=== PATIENT | male | born 1980 | race African-American/Black ===

== ENCOUNTER → 2020-07-18 14:37 | Outpatient (BNVA) | payer OTHER, SELFPAY | PROVIDERS: PCP Family Medicine; Referring Provider Family Medicine; Visit Provider Surgery | DX: K62.82 Dysplasia of anus (principal) | CPT/HCPCS: 46600; 99212 ==

== ENCOUNTER → 2021-01-30 15:32 | Outpatient (BNVA) | payer OTHER, SELFPAY | PROVIDERS: PCP Family Medicine; Visit Provider Surgery | DX: K62.82 Dysplasia of anus (principal) | CPT/HCPCS: 46600; 99212 ==

== ENCOUNTER → 2021-08-14 10:42 | Outpatient (BNVA) | payer OTHER, SELFPAY | PROVIDERS: PCP Family Medicine; Referring Provider Internal Medicine; Visit Provider Surgery | DX: K62.82 Dysplasia of anus (principal) | CPT/HCPCS: 46600; 99212 ==

== ENCOUNTER → 2022-08-14 10:41 | Outpatient (BNVA) | payer OTHER, SELFPAY | PROVIDERS: PCP Internal Medicine; Visit Provider Surgery | DX: K64.9 Unspecified hemorrhoids (principal); Z87.19 Personal history of other diseases of the digestive system | CPT/HCPCS: 46600; 99212 ==

== ENCOUNTER 2023-04-21 09:53 | Outpatient (REF) | payer OTHER, SELFPAY ==
[2023-04-21 12:09] LABS: Estimated Glomerular Filt Rate > 60
[2023-04-21 12:10] LABS: ~HepC Num1 0.05 S/CO (0.00-0.79); ~Hepatitis C Antibody Nonreactive (Nonreactive)
[2023-04-21 12:11] LABS: Syphilis Screen Nonreactive (Nonreactive)
[2023-04-23 15:43] LABS: HIV RNA PCR Qn Copies NOT DETECTED copies/mL (NOT DETECTED); HIV RNA PCR Qn Log Copies NOT DETECTED (NOT DETECTED)
== END 2023-04-21 09:54 | disposition home or self-care (01) ==
LOC: HO.HHCL 09:53
PROVIDERS: Visit Provider Internal Medicine
DX: Z11.3 Encounter for screening for infections with a predominantly sexual mode of transmission (principal)
CPT/HCPCS: 36415; 82565; 86780; 86803; 87536

== ENCOUNTER 2023-06-01 10:03 | Outpatient (REF) | payer OTHER, SELFPAY ==
[2023-06-01 14:11] LABS: MANUAL DIFF FLAG NO
[2023-06-01 14:16] LABS: Basophils Percent Auto 0.5 % (0-2); Eosinophils Absolute Auto 0.2 X10*3/uL (0.0-0.4); Eosinophils Percent Auto 3.5 % (0-4); Hematocrit 48.4 % (42.0-52.0); Hemoglobin 15.8 g/dl (14.0-18.0); Imm Gran Abs Auto 0.01 X10*3/uL (0.00-0.03); Imm Gran Pct Auto 0.2 % (0.0-0.4); Lymphocytes Absolute Auto 2.6 X10*3/uL (1.2-4.9); Lymphocytes Percent Auto 38.3 % (20-40); Mean Corpuscular HGB Conc 32.6 g/dl (31.0-36.0); Mean Corpuscular Hemoglobin 27.4 pg (27.0-33.0); Mean Corpuscular Volume 83.9 fL (80.0-98.0); Mean Platelet Volume 11.2 fL (9.4-12.4); Monocytes Absolute Auto 0.5 X10*3/uL (0.1-1.2); Monocytes Percent Auto 6.8 % (2-11); Neutrophils Absolute Auto 3.4 x10*3/uL (2.0-8.3); Neutrophils Percent Auto 50.7 % (45-73); Platelet Count 290 X10*3/uL (160-400); Red Blood Count 5.77 X10*6/uL (4.60-5.80); Red Cell Distribution Width 12.9 % (11.0-16.0); White Blood Count 6.7 X10*3/uL (4.8-10.8)
[2023-06-01 14:46] LABS: Anion Gap 16 (12-20); Blood Urea Nitrogen 20 mg/dL (9-16); Calcium 9.9 mg/dL (8.4-10.2); Carbon Dioxide 23 mmol/L (22-29); Chloride 101 mmol/L (96-108); Cholesterol 167 mg/dL (<200); Estimated Glomerular Filt Rate > 60; HDL Cholesterol 24 mg/dL (>40); LDL Cholesterol Calculated 96 mg/dL (<100); Potassium 4.6 mmol/L (3.3-5.1); Sodium 135 mmol/L (135-145); Triglycerides 237 mg/dL (<150)
[2023-06-01 14:51] LABS: Glucose Fasting 398 mg/dL (60-99)
[2023-06-01 14:51] LABS: Creatinine Urine 56.77 mg/dL; Microalbum/Creatinine Ratio Ur 364.6 ug/mg cr (<30)
== END 2023-06-01 10:04 | disposition home or self-care (01) ==
LOC: HO.CHCLDS 10:03
PROVIDERS: Visit Provider Internal Medicine
DX: E11.65 Type 2 diabetes mellitus with hyperglycemia (principal); Z79.4 Long term (current) use of insulin
CPT/HCPCS: 36415; 80048; 80061; 82043; 82570; 84443; 85025

== ENCOUNTER 2023-08-13 10:12 | Outpatient (AMB) | payer OTHER, SELFPAY ==
--- NOTE | 2023-08-13 10:17 | MHC.OFFVIS ---
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 Patient c/o; reports no rectal bleeding or pain. 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 Currently denies any significant complaints with regards to his anus. He does admit to being constipated and would have pain and discomfort once in a while with hard stools. He denies any bleeding. [facility] Medical History AIN grade II Surgical History History of excision of mass Family History Mother Breast CA Father Diabetes Social History Alcohol intake: current Alcohol intake frequency: holidays/special occasions only Review of Systems Const Denies chills and Denies fever(s) Card Denies chest pain, Denies dyspnea and Denies dyspnea on exertion Resp Denies cough, Denies dyspnea and Denies dyspnea on exertion GI Denies hematochezia, Denies change in bowel habits and Reports constipation Denies hematuria and Denies difficulty urinating Musc Denies back pain and Denies limited range of motion Neuro Denies focal weakness and Denies convulsions Psych Denies depression and Denies mood swings Physical Exam Vital Signs: Last Vital Signs Pulse 68 08/13/23 10:24 BP 124/55 L 08/13/23 10:24 BMI result Body Mass Index 31.0 Const General: comfortable and no acute distress Orientation/consciousness: patient oriented x3 Neck Neck: Yes no lymphadenopathy Resp Auscultation: clear to auscultation bilaterally Cardio Rhythm: regular rhythm GI Other: Rectal exam shows moderate size external hemorrhoids mostly on the left, no perianal lesions Palpation (GI): Soft to palpation, nontender and no guarding Neuro General: patient oriented x3 Office Procedures Anoscopy He was in aron-knife position. The anoscope was gently inserted. A full examination of the anal canal was done. Had internal and external hemorrhoids on both the left and right side. There were no lesions seen. There is no condyloma. There was no ulcer or fissure. There was no induration on digital exam. There was no bleeding. [id number] Assessment & Plan Assessment & Plan (1) AIN grade II: Code(s): K62.82 - Dysplasia of anus Plan: Current exam and anoscopy reveals hemorrhoids, internal external but without any ulcers, abnormal mucosa in the anus or induration. I have therefore him to come back in about 1 year to repeat the anoscopy for surveillance. He also admits to chronic constipation. I have prescribed him Metamucil I also told him that if he have concerns, he can come back to the office earlier. Medications: New psyllium seed (sugar) (Metamucil (sugar) oral powder) 1 tbsp PO BID 1,254 grams 0RF Coding Level of Care Code Est Pt Level 3 (66172) Diagnoses AIN grade II K62.82 CPT Codes Details - CPT: 10376-[id number] ([id number])
[2023-08-13 10:24] VITALS: BP 124/55; PULSE 68; BMI 31.0
== END 2023-08-13 10:38 | disposition home or self-care (01) ==
PROVIDERS: PCP Internal Medicine; Visit Provider Surgery
DX: K62.82 Dysplasia of anus (principal)
CPT/HCPCS: 46600; 99213

== ENCOUNTER → 2023-08-13 10:12 | Outpatient (BNVA) | payer OTHER, SELFPAY | PROVIDERS: PCP Internal Medicine; Visit Provider Surgery | DX: K62.82 Dysplasia of anus (principal) | CPT/HCPCS: 46600; 99212 ==

== ENCOUNTER 2024-05-10 11:32 | Outpatient (REF) | payer OTHER, SELFPAY ==
[2024-05-10 14:10] LABS: Cholesterol 179 mg/dL (<200); Estimated Glomerular Filt Rate > 60; HDL Cholesterol 37 mg/dL (>40); LDL Cholesterol Calculated 130 mg/dL (<100); Triglycerides 63 mg/dL (<150)
[2024-05-11 04:38] LABS: Syphilis Screen Nonreactive (Nonreactive)
[2024-05-11 04:44] LABS: ~HepC Num1 0.08 S/CO (0.00-0.79); ~Hepatitis C Antibody Nonreactive (Nonreactive)
[2024-05-11 12:49] LABS: HIV RNA PCR Qn Copies NOT DETECTED copies/mL (NOT DETECTED); HIV RNA PCR Qn Log Copies NOT DETECTED (NOT DETECTED)
== END 2024-05-10 11:33 | disposition home or self-care (01) ==
LOC: HO.HHCL 11:32
PROVIDERS: Nurse Practitioner Primary Care; Visit Provider Internal Medicine
DX: E11.65 Type 2 diabetes mellitus with hyperglycemia (principal); Z79.4 Long term (current) use of insulin; Z11.3 Encounter for screening for infections with a predominantly sexual mode of transmission
CPT/HCPCS: 36415; 80061; 82565; 86780; 86803; 87536

== ENCOUNTER 2024-11-29 11:16 | Outpatient (REF) | payer OTHER, SELFPAY ==
[2024-11-29 14:23] LABS: Syphilis Screen Nonreactive (Nonreactive)
[2024-11-29 14:25] LABS: ~HepC Num1 0.08 S/CO (0.00-0.79); ~Hepatitis C Antibody Nonreactive (Nonreactive)
[2024-11-30 17:59] LABS: HIV RNA PCR Qn Copies NOT DETECTED copies/mL (NOT DETECTED); HIV RNA PCR Qn Log Copies NOT DETECTED (NOT DETECTED)
== END 2024-11-29 11:17 | disposition home or self-care (01) ==
LOC: HO.HHCL 11:16
PROVIDERS: Visit Provider Internal Medicine
DX: Z79.899 Other long term (current) drug therapy (principal)
CPT/HCPCS: 36415; 82550; 86780; 86803; 87536

== ENCOUNTER 2024-11-29 16:02 | Outpatient (REF) | payer OTHER, SELFPAY ==
[2024-11-29 18:48] LABS: Creatinine Urine 73.28 mg/dL; Microalbum/Creatinine Ratio Ur 27.2 ug/mg cr (<30)
== END 2024-11-29 16:03 | disposition home or self-care (01) ==
LOC: HO.CHCLDS 16:02
PROVIDERS: Visit Provider Internal Medicine
DX: E11.65 Type 2 diabetes mellitus with hyperglycemia (principal); Z79.4 Long term (current) use of insulin
CPT/HCPCS: 82043; 82570

== ENCOUNTER 2025-03-06 11:43 | Outpatient (REF) | payer OTHER, SELFPAY ==
--- OUTSIDE RECORDS SUMMARY | 2025-03-06 12:36 | XMS_ITS | Clinical Summary ---
Author Organization [employer] Address [address] [place] [address] Care Team Providers Care Salt Machine Operator Name Role Phone Julianne Harper MD Primary Care Provider [phone] Allergies No known active allergies Medications BD Insulin Syringe U/F 31G X 5/16 0.5 ML miscIndications :Type 2 diabetes mellitus with hyperglycemia, with long-term current use of insulin ([facility]),Type 2 diabetes mellitus without complication, without long-term current use of insulin ([facility]) USE ONCE DAILY 30 each 06/01/20 23 Active Alcohol Swabs (Alcohol Pads) 70 % padsIndications :Type 2 diabetes mellitus with hyperglycemia, with long-term current use of insulin ([facility]) TO use 4 times a day 100 each 06/29/20 23 Active tadalafil (Cialis) 20 MG tablet TAKE 1 TABLET 1 HOUR BEFORE SEXUAL RELATIONS ONCE DAILY NEEDED. 30 tablet 01/21/20 24 Active insulin syringe-needle U-100 (BD Insulin Syringe U/F) 31G X 5/16 0.5 mL miscIndications :Type 2 diabetes mellitus with hyperglycemia, with long-term current use of insulin ([facility]),Type 2 diabetes mellitus without complication, without long-term current use of insulin ([facility]) USE ONE DAILY 30 each 07/05/20 24 Active insulin glargine (Lantus) 100 UNIT/ML injectionIndica tions:Type 2 diabetes mellitus with hyperglycemia, with long-term current use of insulin ([facility]) Inject 35 Units under the skin at bedtime. 10 mL 07/26/20 24 Active simvastatin (Zocor) 40 MG tabletIndicatio ns:Hypertriglyc eridemia Take 1 tablet (40 mg) by mouth at bedtime. 90 tablet 3 11/30/19 25 026 Active Diclofenac Sodium 1 % gelIndications: Chronic midline low back pain without sciatica To apply to the affected area 3 times a day 100 g 11/30/19 25 Active emtricitabine-t enofovir DF (Truvada) 200-300 MG tabletIndicatio ns:On pre-exposure prophylaxis for HIV One tablet by mouth daily 90 tablet 12/06/19 25 Active lisinopril 5 MG tabletIndicatio ns:Primary hypertension Take 1 tablet (5 mg) by mouth in the morning. 90 tablet 3 03/06/20 25 Active Cialis 20 MG tabletIndicatio ns:Other male erectile dysfunction Take 1 tablet (20 mg) by mouth if needed each day for erectile dysfunction. 10 tablet 3 03/06/20 25 Active empagliflozin (Jardiance) 25 MGIndications:T ype 2 diabetes mellitus with hyperglycemia, with long-term current use of insulin ([facility]),Type 2 diabetes mellitus with hyperglycemia, without long-term current use of insulin ([facility]) TAKE ONE TABLET BY MOUTH EVERY DAY IN THE MORNING FOR DIABETES 30 tablet 3 03/06/20 25 Active metFORMIN (Glucophage) 1000 MG tabletIndicatio ns:Type 2 diabetes mellitus with hyperglycemia, with long-term current use of insulin ([facility]) Take 1 tablet (1,000 mg) by mouth with breakfast and with evening meal. 180 tablet 5 03/06/20 25 Active Cialis 20 MG tablet TAKE 1 TABLET 1 HOUR BEFORE SEXUAL RELATIONS ONCE DAILY NEEDED. 07/08/20 22 025 Discontinued(Re order (will not trigger notification to Pharmacy)) empagliflozin (Jardiance) 25 MGIndications:T ype 2 diabetes mellitus with hyperglycemia, with long-term current use of insulin ([facility]),Type 2 diabetes mellitus with hyperglycemia, without long-term current use of insulin ([facility]) TAKE ONE TABLET BY MOUTH EVERY DAY IN THE MORNING FOR DIABETES 30 tablet 3 09/20/19 25 025 Discontinued metFORMIN (Glucophage) 1000 MG tablet Take 1 tablet (1,000 mg) by mouth with breakfast and with evening meal. 180 tablet 5 11/30/19 25 025 Discontinued(Re order (will not trigger notification to Pharmacy)) lisinopril 5 MG tabletIndicatio ns:Primary hypertension Take 1 tablet (5 mg) by mouth in the morning. 90 tablet 3 11/30/19 25 025 Discontinued(Re order (will not trigger notification to Pharmacy)) empagliflozin (Jardiance) 25 MGIndications:T ype 2 diabetes mellitus with hyperglycemia, with long-term current use of insulin ([facility]),Type 2 diabetes mellitus with hyperglycemia, without long-term current use of insulin ([facility]) TAKE ONE TABLET BY MOUTH EVERY DAY IN THE MORNING FOR DIABETES 30 tablet 3 02/14/20 25 025 Discontinued(Re order (will not trigger notification to Pharmacy)) Active Problems Problem Noted Date Diagnosed Date Hypertensive disorder 12/11/2020 Onychomycosis 04/23/2018 ED (erectile dysfunction) 04/23/2018 Type 2 diabetes mellitus 07/10/2015 Encounters Date Type Department Care Team Description 03/06/2025 11:00 AM EDT Office Visit [facility] [address] [place] [address] Julianne Harper MD Primary hypertension (Primary Dx); Type 2 diabetes mellitus with hyperglycemia, with long-term current use of insulin ([facility]); Primary hypertension; Other male erectile dysfunction; Type 2 diabetes mellitus with hyperglycemia, with long-term current use of insulin ([facility]); Type 2 diabetes mellitus with hyperglycemia, without long-term current use of insulin ([facility]); Encounter for immunization; Dietary counseling; Exercise counseling; Class 1 obesity due to excess calories with serious comorbidity and body mass index (BMI) of 33.0 to 33.9 in adult 03/06/2025 Travel 02/17/2025 Refill [facility] [address] [place] [address] Julianne Harper MD 02/11/2025 Refill [facility] [address] [place] [address] Julianne Harper MD Type 2 diabetes mellitus with hyperglycemia, with long-term current use of insulin ([facility]); Type 2 diabetes mellitus with hyperglycemia, without long-term current use of insulin ([facility]) 12/05/2024 Orders Only [facility] [address] [facility] [place] [address] Julianne Harper MD On pre-exposure prophylaxis for HIV from Last 3 Months Immunizations Immunization Administration Dates Next Due Hep B, adult 03/06/2025 Influenza injectable quadriv alent IIV4 with preservative 09/12/2019,11/09/2017,06/09/2016,07/10 Influenza injectable quadriv alent preservative free 06/01/2023,06/06/2021,2018 Influenza, seasonal, injecta ble, preservative free 07/27/2024 MMR 2018,03/26/2016 Pfizer Covid-19 Vaccine 12+ 07/27/2024 Pneumococcal Conjugate PCV 20 01/21/2024 Pneumococcal Polysaccharide PPSV23 08/01/2015 Tdap 08/01/2015 Family History Medical History Relation Name Comments Diabetes Father Relation Name Status Comments Father Social History Tobacco Use Types Packs/Day Years Used Date Smoking Tobacco: Never Smokeless Tobacco: Never Tobacco Cessation:Counseling Given: No Alcohol Answer Date Recorded How often do you have a drink containing alcohol ? 1 03/06/2025 How many drinks containing a lcohol do you have on a typical day when you are drinking? 0 03/06/2025 How often do you have six or more drinks on one occasion? 0 03/06/2025 Depression Answer Date Recorded Patient Health Questionnaire-9 Score 6 03/06/2025 Patient Health Questionnaire-9 Score 6 03/06/2025 Last PHQ-9: Questionnaire Data Not on file 0 03/06/2025 Housing Stability Answer Date Recorded What is your housing situation today? I have sukumar sing 11/22/[address] you li ve. Do you have problems with any of the following? None of the above 11/22/2024 Food Insecurity Answer Date Recorded Within the past 12 months, y ou worried that your food would run out before you got money to buy more: Never True 2024 Within the past 12 months,th e food you bought just didn't last and you didn't have enough money to get more: Sometimes True 03/06/2025 Transportation Answer Date Recorded In the past 12 months, has l ack of transportation kept you from medical appts, meetings, work or from getting things needed for daily living? I am not sure 03/06/2025 Utilities Answer Date Recorded In the past 12 months, has t he electric, gas, oil or water company threatened to shut off services in your home? No 11/22/2024 Depression Answer Date Recorded Patient Health Questionnaire-2 Score 2 03/06/2025 Internet Access Answer Date Recorded Internet Access Q1 Yes 11/22/2024 Internet Access Q2 Not on file 11/22/2024 Sex and Gender Information Value Date Recorded Sex Assigned at Male 07/07/2022 10:28 AM EDT Legal Sex Male 10:28 AM EDT Gender Identity Choose not to disclose 10:28 AM EDT Sexual Orientation Choose not to disclose 2021 10:28 AM EDT Last Filed Vital Signs Vital Sign Reading Time Taken Comments Blood Pressure 136/83 03/06/2025 11:24 AM EDT Pulse 92 03/06/2025 11:24 AM EDT Temperature 36.8 C (98.2 F) 03/06/2025 11:03 AM EDT Respiratory Rate 20 03/06/2025 11:03 AM EDT Oxygen Saturation 98% 03/06/2025 11:03 AM EDT Inhaled Oxygen Concentration - - Weight 98 kg (216 lb) 03/06/2025 11:03 AM EDT Height 172.1 cm (5' 7.75 ) 03/06/2025 11:03 AM E DT Body Mass Index 33.09 03/06/2025 11:03 AM EDT Plan of Treatment Health Maintenance Due Date Last Done Comments CT Colonography 1979 Colonoscopy 1979 Colorectal Cancer Screening 1979 FIT DNA/Cologuard 1979 FIT 1979 FOBT 1979 Sigmoidoscopy 1979 Disability Screening 1979 Eye Exam 1989 Family Planning (PISQ) 1994 Hepatitis B Vaccines (2 of 3 - 19+ 3-dose series) 04/03/2025 03/06/2025 Lipid Panel 05/10/2025 05/10/2024, 05/09, 04/30/2021 Diabetes: Hemoglobin A1C 06/06/2025 025, 11/29/2024, 07/26/2024, Additional history exists Diabetes: Foot Exam 07/26/2025 07/26/2024 DTaP/Tdap/Td Vaccines (2 - Td or Tdap) 08/01/2025 08/01/2015 SDOH Screening 11/22/2025 11/22/2024 Diabetes: Urine Protein Screening 11/29/2025 11/29/2024, 06/01/2023, 04/30/2021, Additional history exists Alcohol/Substance Use Screening 03/06/2026 03/06/2025 Depression Screening 03/06/2026 03/06/2025, 03/06/20 Tobacco Screening 03/06/2026 03/06/2025 Zoster Vaccines (1 of 2) 2029 RSV Patients and Patients Aged 60 years or older (1 - 1-dose 75+ series) 2054 Pneumococcal Vaccine: Pediatrics (0 to 5 Years) and At-Risk Patients (6 to 49) Years Completed 01/21/2024, 08/01/2015 COVID-19 Vaccine Completed 07/27/2024, 06/2021, 03/26/2021 Influenza Vaccine Completed 07/27/2024, , 06/06/2021, Additional history exists HIV Screening Completed 11/29/2024, 0911/2023, 04/21/2023, Additional history exists Hepatitis C Screening Completed 11/29/2024 , 05/10/2024, 04/21/2023, Additional history exists HIB Vaccines Aged Out No longer eligi ble based on patient's age to complete this topic HPV Vaccines Aged Out No longer eligi ble based on patient's age to complete this topic Hepatitis A Vaccines Aged Out No long er eligible based on patient's age to complete this topic IPV Vaccines Aged Out No longer eligi ble based on patient's age to complete this topic Meningococcal B Vaccine Aged Out No l onger eligible based on patient's age to complete this topic Meningococcal Vaccine Aged Out No ty butch eligible based on patient's age to complete this topic RSV under 20 months Aged Out No longe r eligible based on patient's age to complete this topic Rotavirus Vaccines Aged Out No longer eligible based on patient's age to complete this topic Procedures Procedure Name Priority Date/Time Associated Diagnosis Comments POCT GLUCOSE Routine 03/06/2025 11:29 AM EDT Type 2 diabetes mellitus with hyperglycemia, with long-term current use of insulin ([facility]) POCT GLYCATED HEMOGLOBIN, TOTAL Routine 03/06/2025 11:28 AM EDT Type 2 diabetes mellitus with hyperglycemia, with long-term current use of insulin ([facility]) ALBUMIN, RANDOM URINE W/CREATININE Routine 11/29/2024 4:10 PM EDT Type 2 diabetes mellitus with hyperglycemia, with long-term current use of insulin ([facility]) HEPATITIS C AB W/REFL TO HCV RNA, QN, PCR Routine 11/29/2024 11:20 AM EDT On pre-exposure prophylaxis for HIV HIV 1 RNA, QUANTITATIVE REAL TIME PCR Routine 11/29/2024 11:20 AM EDT On pre-exposure prophylaxis for HIV LIPID PANEL, STANDARD Routine 05/10/2024 11:38 AM EDT Type 2 diabetes mellitus with hyperglycemia, with long-term current use of insulin ([facility]) from Last 3 Months or Most Recently Relevant to Health Maintenance Results * (ABNORMAL) POCT Glucose (03/06/2025 11:29 AM EDT) Pathologist [facility] Glucose Blood, POC 246(A) 60 - 200 mg/dL QC Media Lot # [id number] Lot# Expiration Date Comment:random Blood Capillary blood specimen / Unknown 03/06/2025 11:29 AM EDT Julianne Harper MD POINT OF CARE TEST ENTER/ED IT ORDERABLES Final Result * (ABNORMAL) POCT HGB A1C (03/06/2025 11:28 AM EDT) Hemoglobin A1C 9.7(A) 4.0 - 5.7 % QC Media Lot # [id number] Lot# Expiration Date [id number] Blood 03/06/2025 11:2 8 AM EDT Julianne Harper MD POINT OF CARE TEST ENTER/ED IT ORDERABLES Final Result * Albumin, Random Urine W/Creatinine (11/29/2024 4:10 PM EDT) Creatinine, Urine 73.28 mg/dL [facility] Microalbumin Urine 20.0 mg/L [facility] Microalbum Creatinine Ratio Ur 27.2 <30 ug/mg cr [facility] Comment:Albumin/Creatinine R atio Reference Ranges: Normal: < 30 ug/mg creatinine Microalbuminuria: 30 - 300 ug/mg creatinineClinical Albuminuria: > 300 ug/mg creatinine Urine (Urine, Random) 11/29/2024 4:10 PM EDT 11/29/2024 5:55 PM EDT us Julianne Harper MD LAB URINE ORDERABLES Final Result Performing Organization Address City/[facility]/ZIP Co de Phone Number [facility] [address] [place] [phone] * Hepatitis C Antibody with Reflex to HCV, RNA, Quantitative, Real-Time PCR (11/29/2024 11:20 AM EDT) Hepatitis C Antibody Nonreactive Nonreactive [facility] Comment:Antibodies to HCV no t detected; does not exclude early acuteHCV infection. 11/29/2024 11:2 0 AM EDT 11/29/2024 1:38 PM EDT us Julianne Harper MD LAB BLOOD ORDERABLES Final Result Performing Organization Address City/[facility]/ZIP Co de Phone Number [facility] [address] [place] [phone] * HIV-1 RNA, Quantitative, Real-Time PCR (11/29/2024 11:20 AM EDT) HIV RNA PCR Qn Copies NOT DETECTED NOT DETECTED copies/mL [facility] HIV RNA PCR Qn Log Copies NOT DETECTED NOT DETECTED [facility] Comment:Result Units: Log co pies/mLThis test was performed using Real-Time Polymerase ChainReaction.Reportable Range: 20 copies/mL to 10,000,000 copies/mL(1.30 log copies/mL to 7.00 log copies/mL).THIS TEST WAS PERFORMED AT:[email or web address] [place] [id number] HAYWARD MD 11/29/2024 11:2 0 AM EDT 11/29/2024 1:38 PM EDT Julianne Harper MD LAB BLOOD ORDERABLES Final Result [facility] [address] [place] [phone] [phone] * (ABNORMAL) Lipid Panel, Standard (05/10/2024 11:38 AM EDT) Triglycerides 63 <150 mg/dL [facility] Comment:Desirable Triglyceri de: less than 150 mg/dLBorderline High Triglyceride 150-199 mg/dLHigh Triglyceride: 200-499 mg/dLVery High Triglyceride: greater than or equal to 5OO mg/dL Cholesterol 179 <200 mg/dL [facility] Comment:Desirable Cholestero l: less than 200 mg/dLBorderline High Cholesterol: 200-239 mg/dLHigh Cholesterol: greater than 239 mg/dL LDL Cholesterol Calculated 130(H) <100 mg/dL [facility] Comment:Desirable LDL: less than 100 mg/dLNear Optimal/Above Optimal LDL: 110- 129 mg/dLBorderline High LDL: 130-159 mg/dLHigh LDL: 160-189 mg/dLVery High LDL: greater than or equal to 190 mg/dL HDL Cholesterol 37(L) >40 mg/dL [facility] Comment:Desirable HDL: great er than 40 mg/dL Note: This HDL assay may give artificially low results in patients with liver disease. Blood Venous blood specimen / Unknown 05/10/2024 11:38 AM EDT 05/10/2024 1:23 PM EDT Rosalba Humphrey [facility] LAB BLOOD ORDERABLES Final Resul t [facility] [address] [place] [address] [phone] from Last 3 Months or Most Recently Relevant to Health Maintenance Insurance [facility] Care Teams Salt Machine Operator Relationship Specialty Start Date End Date Julianne Harper MD [address] [place] [phone] PCP - General Internal Medicine 12/11/20
[2025-03-06 15:41] LABS: Alanine Aminotransferase 40 U/L (0-40); Albumin Level 4.7 g/dL (3.5-5.0); Alkaline Phosphatase 97 U/L (39-117); Anion Gap 13 (12-20); Aspartate Amino Transferase 68 U/L (5-37); Bilirubin Total 0.3 mg/dL (0.0-1.0); Blood Urea Nitrogen 38 mg/dL (9-16); Calcium 9.8 mg/dL (8.4-10.2); Carbon Dioxide 22 mmol/L (22-29); Chloride 106 mmol/L (96-108); Cholesterol 192 mg/dL (<200); Estimated Glomerular Filt Rate > 60; Glucose Random 260 mg/dL (60-115); HDL Cholesterol 26 mg/dL (>40); Potassium 4.7 mmol/L (3.3-5.1); Sodium 136 mmol/L (135-145); Total Protein 8.3 g/dL (6.5-8.0); Triglycerides 524 mg/dL (<150)
== END 2025-03-06 11:44 | disposition home or self-care (01) ==
LOC: HO.CHCLDS 11:43
PROVIDERS: Visit Provider Internal Medicine
DX: E11.65 Type 2 diabetes mellitus with hyperglycemia (principal); Z79.4 Long term (current) use of insulin; I10 Essential (primary) hypertension
CPT/HCPCS: 36415; 80053; 80061

== ENCOUNTER 2025-06-13 10:05 | Outpatient (REF) | payer OTHER, SELFPAY ==
--- OUTSIDE RECORDS SUMMARY | 2025-06-13 11:54 | XMS_ITS | Encounter Summary ---
Author Organization [employer] Address [address] [facility] [address] [place] [address] Care Team Providers Care Maintenance Electrician Name Role Phone Julianne Harper MD Primary Care Provider [phone] Yoko Aly PharmD Unavailable [phone] Encounter Details Date Type Department Care Team (Late st Contact Info) Description 08/01/2024 Orders Only [facility] [address] [place] [address] Julianne Harper MD [address] [place] [address] On pre-exposure prophylaxis for HIV Social History Tobacco Use Types Packs/Day Years Used Date Smoking Tobacco: Never Smokeless Tobacco: Never Sex and Gender Information Value Date Recorded Sex Assigned at Male 07/07/2022 10:28 AM EDT Legal Sex Male 10:28 AM EDT Gender Identity Choose not to disclose 10:28 AM EDT Sexual Orientation Choose not to disclose 2021 10:28 AM EDT documented as of this encounter Plan of Treatment Upcoming Encounters Date Type Department Care Team (Late st Contact Info) Description 06/20/2025 10:00 AM EDT Office Visit [facility] [address] [place] [address] Julianne Harper MD [address] [place] [address] 07/11/2025 9:00 AM EST Medication Management [facility] [address] [place] [address] Yoko Aly, MichealD [address] [place] [address] documented as of this encounter Visit Diagnoses Diagnosis On pre-exposure prophylaxis for HIV documented in this encounter Care Teams Maintenance Electrician Relationship Specialty Start Date End Date Julianne Harper MD [address] [place], [place] [address] [place] [address] PCP - General Internal Medicine 12/11/20 Yoko Aly, PharmD [address] [place] [address] Pharmacist Pharmacy 04/11/25 documented as of this encounter
--- OUTSIDE RECORDS SUMMARY | 2025-06-13 11:54 | XMS_ITS | Encounter Summary ---
Author Organization [employer] Address [address] [facility] 7t [place] [address] Care Team Providers Care Bus Washer Name Role Phone Julianne Harper MD Primary Care Provider [phone] Yoko Aly PharmD Unavailable [phone] Encounter Details Date Type Department Care Team (Latest Contact Info) Description 03/06/2025 Orders Only [facility] CHC MED & PEDS [address] [place], [place] [phone] Julianne Harper MD [address] [place] [address] Hypertriglyceridemia (Primary Dx) Social History Tobacco Use Types Packs/Day Years Used Date Smoking Tobacco: Never Smokeless Tobacco: Never Alcohol Answer Date Recorded How often do [...] your housing situation today? I have sukumar luong 11/22/[address] you li [...] AM EDT documented as of this encounter Functional Status * Over the past 2 weeks, how often have you been bothered by any of the following problems? Question Answer Date of Assessment Author Patient Health Questionnaire-2 Score 2 02/07 11:26 AM EDT Florence Jc MA * Little interest or pleasure in doing things Answer Date of Assessment Author More than half the days 03/06/2025 11:26 AM SANGEETAT Florence Jc MA * Feeling down, depressed, or hopeless Answer Date of Assessment Author Not at all 03/06/2025 11:26 AM EDT Susana Jc MA * Trouble falling or staying asleep, or sleeping too much Answer Date of Assessment Author Not at all 03/06/2025 11:26 AM SANGEETAT Susana Jc MA * Feeling tired or having little energy Answer Date of Assessment Author Nearly every day 03/06/2025 11:26 AM Florence Darnell MA * Poor appetite or overeating Answer Date of Assessment Author Not at all 03/06/2025 11:26 AM SANGEETAT Susana Jc MA * Feeling bad about yourself - or that you are a failure or have let yourself or your family down Answer Date of Assessment Author Not at all 03/06/2025 11:26 AM EDT Susana Jc MA * Trouble concentrating on things, such as reading the newspaper or watching television Answer Date of Assessment Author Not at all 03/06/2025 11:26 AM EDT Susana Jc MA * Moving or speaking so slowly that other people could have noticed? Or the opposite - being so fidgety or restless that you have been moving around a lot more than usual. Answer Date of Assessment Author Several days 03/06/2025 11:26 AM EDT Susana Jc MA * Thoughts that you would be better off or hurting yourself in some way Answer Date of Assessment Author Not at all 03/06/2025 11:26 AM EDT Susana Jc MA * Patient Health Questionnaire-9 Score Answer Date of Assessment Author 6 03/06/2025 11:26 AM EDT Susana Jc MA * How difficult have these problems made it for you to do your work, take care of things at home, or get along with other people? Answer Date of Assessment Author Not difficult at all 03/06/2025 11:26 AM EDT Florence Esteban MA documented as of this encounter Plan of Treatment Upcoming Encounters Date Type Department Care Team (Late st Contact Info) Description 06/20/2025 10:00 AM EDT Office Visit [facility] MED & PEDS [address] [place] [address] Julianne Harper MD [address] [place] [address] 07/11/2025 9:00 AM EST Medication Management [facility] MED & PEDS [address] [place] [address] Yoko Aly PharmD [address] [place] [address] Scheduled Orders Name Type Priority Associated Diagnoses Orde r Schedule Lipid Panel, Standard Lab Routine Hypertriglyceridemia Expected: 03/06/2025 (Approximate), Expires: 03/06/2026 documented as of this encounter Visit Diagnoses Diagnosis Hypertriglyceridemia- Primary Pure hyperglyceridemia documented in this encounter Additional Health Concerns Assessment Noted Time PHQ-9 Depression Total Score: 6 03/06/20 25 11:26 AM EDT documented as of this encounter Care Teams Bus Washer Relationship Specialty Start Date End Date Julianne Harper MD [address] [place] [address] PCP - General Internal Medicine 12/11/20 Yoko Aly PharmD [address] [place] [address] Pharmacist Pharmacy 04/11/25 documented as of this encounter
--- OUTSIDE RECORDS SUMMARY | 2025-06-13 11:54 | XMS_ITS | Clinical Summary ---
Author Organization [employer] Address [address] [facility] 7[address] [place] [address] Care Team Providers Care Well Logging Captain Mud Analysis Name Role Phone Julianne Harper MD Primary Care Provider [phone] Yoko Aly PharmD Unavailable [phone] Allergies No known active allergies Medications Alcohol Swabs (Alcohol Pads) 70 % padsIndications :Type 2 diabetes mellitus with hyperglycemia, with long-term current use of insulin ([facility]) TO use 4 times a day 100 each 11 06/29/20 23 Active tadalafil (Cialis) 20 MG tablet TAKE 1 TABLET 1 HOUR BEFORE SEXUAL RELATIONS ONCE DAILY NEEDED. 30 tablet 01/21/20 24 Active Diclofenac Sodium 1 % gelIndications: Chronic [...] hyperglycemia, with long-term current use of insulin (HCC),Type 2 diabetes mellitus with hyperglycemia, without long-term current use of insulin ([facility]) TAKE ONE TABLET BY MOUTH EVERY DAY IN THE MORNING FOR DIABETES 30 tablet 3 03/06/20 25 Active metFORMIN (Glucophage) 1000 MG tabletIndicatio ns:Type 2 diabetes mellitus with hyperglycemia, with long-term current use of insulin ([facility]) Take 1 tablet (1,000 mg) by mouth with breakfast and with evening meal. 180 tablet 5 03/06/20 25 Active atorvastatin (Lipitor) 80 MG tabletIndicatio ns:Hypertriglyc eridemia Take 1 tablet (80 mg) by mouth Once per day. 30 tablet 11 03/06/20 25 026 Active Blood Glucose Monitoring Suppl (FreeStyle [place] Lite) w/Device kit Test blood sugar daily as directed 1 kit 03/14/20 25 Active pen needle 32G x 4 mm misc Use as instructed 100 each 3 04/11/20 25 026 Active insulin glargine (Lantus SoloStar) 100 UNIT/ML pen Inject 38 units daily 05/15/20 25 Active Continuous Glucose Sensor (FreeStyle Philip 3 Plus Sensor) miscIndications :Type 2 diabetes mellitus with hyperglycemia, with long-term current use of insulin ([facility]) 1 each every 15 days. 2 each 06/13/20 25 Active Continuous Glucose Production Control Pegboard Clerk (FreeStyle Philip 3 [place]) deviceIndicatio ns:Type 2 diabetes mellitus with hyperglycemia, with long-term current use of insulin ([facility]) 1 each 1 (one) time for 1 dose. 1 each 06/13/20 25 025 Active glucose blood (FreeStyle Precision Christoph Test) test stripIndication s:Type 2 diabetes mellitus with hyperglycemia, with long-term current use of insulin ([facility]) Test blood sugar up to 3 times daily as directed 100 each 11 06/13/20 25 Active Tirzepatide (Mounjaro) 2.5 MG/0.5ML solution auto-injectorIn dications:Type 2 diabetes mellitus with hyperglycemia, with long-term current use of insulin ([facility]) Inject 2.5 mg under the skin 1 (one) time per week. 2 mL 06/13/20 25 Active insulin glargine (Lantus SoloStar) 100 UNIT/ML pen Inject 35 units daily 04/11/20 25 025 Discontinued(R eorder (will not trigger notification to Pharmacy)) Active Problems Problem Noted Date Diagnosed Date Hypertensive disorder 12/11/2020 Onychomycosis 04/23/2018 ED (erectile dysfunction) 04/23/2018 Type 2 diabetes mellitus 07/10/2015 Encounters Date Type Department Care Team Description 06/13/2025 Travel 06/12/2025 Patient Outreach [facility] MEDICINE [address] [place] [address] Julianne Harper MD Pre-visit Planning (SDOH screening completed on 11/22/24) 05/15/2025 Travel 04/14/2025 Telephone [facility] CHC MED & PEDS [address] [place] [address] Yoko Aly PharmD 04/11/2025 Travel 03/14/2025 Travel from Last 3 Months Immunizations Immunization Administration Dates Next Due Hep B, adult 06/13/2025,03/06/2025 Influenza injectable quadriv alent IIV4 with preservative 09/12/2019,11/09/2017,06/09/2016,07/10 Influenza injectable quadriv alent preservative free 06/01/2023,06/06/2021,2018 Influenza, seasonal, injecta ble, preservative free 06/13/2025,07/27/2024 MMR 2018,03/26/2016 Pfizer Covid-19 Vaccine 12+ 06/13/2025, Pneumococcal Conjugate PCV 20 01/21/2024 Pneumococcal Polysaccharide [...] Sign Reading Time Taken Comments Blood Pressure 116/68 03/14/2025 10:39 AM EDT Pulse 79 03/14/2025 10:39 AM EDT Temperature 36.8 C (98.2 F) 03/06/2025 11:03 AM EDT Respiratory Rate 20 03/06/2025 11:03 AM EDT Oxygen Saturation 98% 03/06/2025 11:03 AM EDT Inhaled Oxygen Concentration - - Weight 98 kg (216 lb) 03/06/2025 11:03 AM EDT Height 172.1 cm (5' 7.75 ) 03/06/2025 11:03 AM E DT Body Mass Index 33.09 03/06/2025 11:03 AM EDT Plan of Treatment Upcoming Encounters Date Type Department Care Team ([facility] st Contact Info) Description 06/20/2025 10:00 AM EDT Office Visit [facility] MED & PEDS [address] [place] [address] Julianne Harper MD [address] [place] [address] 07/11/2025 9:00 AM EST Medication Management [facility] MED & PEDS [address] [place], [place] [phone] Yoko Aly, PharmD [address] [place] [address] Health Maintenance Due Date Last Done Comments CT Colonography 1979 Colonoscopy 1979 FIT 1979 Sigmoidoscopy 1979 Disability Screening 1979 Eye Exam 1989 Family Planning (PISQ) 1994 HPV Vaccines (1 - 3-dose series) 1994 Diabetes: Foot Exam 07/26/2025 07/26/2024 DTaP/Tdap/Td Vaccines (2 - Td or Tdap) 08/01/2025 08/01/2015 Hepatitis B Vaccines (3 of 3 - 19+ 3-dose series) 09/05/2025 06/13/2025, 03/06/2025 Diabetes: Hemoglobin A1C 09/13/2025 025, 03/06/2025, 11/29/2024, Additional history exists SDOH Screening 11/22/2025 11/22/2024 Diabetes: Urine Protein Screening 11/29/2025 11/29/2024, 06/01/2023, 04/30/2021, Additional history exists Alcohol/Substance Use Screening 03/06/2026 03/06/2025 Depression Screening 03/06/2026 03/06/2025, 03/06/20 25 Lipid Panel 03/06/2026 03/06/2025, 09/0 11/2023, 06/01/2023, Additional history exists Tobacco Screening 03/06/2026 03/06/2025 FOBT 03/07/2026 03/07/2025 Colorectal Cancer Screening 03/07/2028 FIT DNA/Cologuard 03/07/2028 03/07/2025 Zoster Vaccines (1 of 2) 2029 RSV Patients and Patients Aged 60 years or older (1 - 1-dose 75+ series) 2054 Pneumococcal Vaccine: Pediatrics (0 to 5 Years) and At-Risk Patients (6 to 49) Years Completed 01/21/2024, 08/01/2015 HIV Screening Completed 11/29/2024, 11/2023, 04/21/2023, Additional history exists Hepatitis C Screening Completed 11/29/2024 , 05/10/2024, 04/21/2023, Additional history exists COVID-19 Vaccine Completed 06/13/2025, , 04/16/2021, Additional history exists Influenza Vaccine Completed 06/13/2025, , 06/01/2023, Additional history exists HIB Vaccines Aged Out [...] Name Priority Date/Time Associated Diagnosis Comments POCT GLYCATED HEMOGLOBIN, TOTAL Routine 06/13/2025 9:58 AM EDT Type 2 diabetes mellitus with hyperglycemia, with long-term current use of insulin ([facility]) POCT GLUCOSE Routine 05/15/2025 9:36 AM EDT Type 2 diabetes mellitus with hyperglycemia, with long-term current use of insulin ([facility]/HCC) LAB COLOGUARD COLON CANCER SCREEN Routine 03/07/2025 2:30 PM EDT Screening for colon cancer LIPID PANEL, STANDARD Routine 03/06/2025 11:48 AM EDT Primary hypertension Type 2 diabetes mellitus with hyperglycemia, with long-term current use of insulin (CMS/HCC) ALBUMIN, RANDOM URINE W/CREATININE Routine 11/29/2024 4:10 PM EDT Type 2 diabetes mellitus with hyperglycemia, with long-term current use of insulin (CMS/HCC) HEPATITIS C AB W/REFL TO HCV RNA, QN, PCR Routine 11/29/2024 11:20 AM EDT On pre-exposure prophylaxis for HIV HIV 1 RNA, QUANTITATIVE REAL TIME PCR Routine 11/29/2024 11:20 AM EDT On pre-exposure prophylaxis for HIV from Last 3 Months or Most Recently Relevant to Health Maintenance Results * (ABNORMAL) POCT A1c (06/13/2025 9:58 AM EDT) Hemoglobin A1C 11.6(A) 4.0 - 5.7 % QC Media Lot # [id number] Lot# Expiration Date Blood 06/13/2025 9:58 AM EDT Julianne Harper MD POINT OF CARE TEST ENTER/ED IT ORDERABLES Final Result * (ABNORMAL) POCT glucose manually resulted (05/15/2025 9:36 AM EDT) Glucose Blood, POC 212(A) 60 - 200 mg/dL QC Media Lot # [id number] Lot# Expiration Date Blood Capillary blood specimen / Unknown 05/15/2025 9:36 AM EDT Julianne Harper MD POINT OF CARE TEST ENTER/ED IT ORDERABLES Final Result * Cologuard?? colon cancer screening (03/07/2025 2:30 PM EDT) Cologuard Result Negative Negative 07/11/20 25 1:37 PM EDT [facility] (CLIA #:[id number]) Comment: The Cologuard (TM) test was performed on this specimen. NEGATIVE TEST RESULT. A negative Cologuard result indicates a low likelihood that a colorectal cancer (CRC) or advanced adenoma (adenomatous polyps with more advanced pre-malignant features) is present. The chance that a person with a negative Cologuard test has a colorectal cancer is less than 1 in 1500 (negative predictive value >99.9%) or has an advanced adenoma is less than 5.3% (negative predictive value 94.7%). These data are based on a prospective cross-sectional study of 10,000 individuals at average risk for colorectal cancer who were screened with both Cologuard and colonoscopy. (Maciel Up al, N Engl J Med 2014;370(14):1286- 1297) The normal value (reference range) for this assay is negative. COLOGUARD RE-SCREENING RECOMMENDATION: Periodic colorectal cancer screening is an important part of preventive healthcare for asymptomatic individuals at average risk for colorectal cancer. Following a negative Cologuard result, the [place] [employer] Society and U.S. Multi-Society Task Force screening guidelines recommend a Cologuard re-screening interval of 3 years. References: [place] [employer] Guideline for Colorectal Cancer Screening: https://www.cancer.org/cancer/hakdl-uouxrc-iwsigy/hkbgvqsrf-lpbzdvijb-hfnaekn/ac s-rec ommendations.html.; Brandon DK, Alicia CR, July JacobsK, Colorectal Cancer Screening: Recommendations for Physicians and Patients from the U.S. Multi-Society Task Force on Colorectal Cancer Screening , Am J Gastroenterology 2017; 112:2517-8819. TEST DESCRIPTION: Composite algorithmic analysis of stool DNA-biomarkers with hemoglobin immunoassay. Quantitative values of individual biomarkers are not reportable and are not associated with individual biomarker result reference ranges. Cologuard is intended for colorectal cancer screening of adults of either sex, 45 years or older, who are at average-risk for colorectal cancer (CRC). Cologuard has been approved for use by the U.S. FDA. The performance of Cologuard was established in a cross sectional study of average-risk adults aged 50-84. Cologuard performance in patients ages 45 to 49 years was estimated by sub-group analysis of near-age groups. Colonoscopies performed for a positive result may find as the most clinically significant lesion: colorectal cancer [4.0%], advanced adenoma (including sessile serrated polyps greater than or equal to 1cm diameter) [20%] or non- advanced adenoma [31%]; or no colorectal neoplasia [45%]. These estimates are derived from a prospective cross-sectional screening study of 10,000 individuals at average risk for colorectal cancer who were screened with both Cologuard and colonoscopy. (Maciel Up al, N Engl J Med 2014;370(14):5996-0218.) Cologuard may produce a false negative or false positive result (no colorectal cancer or precancerous polyp present at colonoscopy follow up). A negative Cologuard test result does not guarantee the absence of CRC or advanced adenoma (pre-cancer). The current Cologuard screening interval is every 3 years. ([place] [employer] Society and U.S. Multi-Society Task Force). Cologuard performance data in a 10,000 patient pivotal study using colonoscopy as the reference method can be accessed at the following location: www.[employer]/results. Additional description of the Cologuard test process, warnings and precautions can be found at www.dloHaiti.SocialBuy. Stool specimen (specimen) 03/07/2025 2:30 PM EDT 03/09/2025 1:16 PM EDT Julianne Harper MD LAB MOLECULAR DIAGNOSTICS O RDERABLES Final Result [facility] (CLIA #:[id number]) [address] [place] [address], * (ABNORMAL) Lipid Panel, Standard (03/06/2025 11:48 AM EDT) Triglycerides 524(H) <150 mg/dL [facility] Comment:Mild Lipemia.Desirab le Triglyceride: less than 150 mg/dLBorderline High Triglyceride 150-199 mg/dLHigh Triglyceride: 200-499 mg/dLVery High Triglyceride: greater than or equal to 5OO mg/dL Cholesterol 192 <200 mg/dL [facility] Comment:Desirable Cholestero l: less than 200 mg/dLBorderline High Cholesterol: 200-239 mg/dLHigh Cholesterol: greater than 239 mg/dL LDL Cholesterol Calculated TNP <100 mg/dL [facility] Comment:Unable to calculate the LDL. The formula of Friedwald,Devi, and Ubaldo is only valid if the triglycerides areless than 400 mg/dl. HDL Cholesterol 26(L) >40 mg/dL [facility] Comment:Desirable HDL: great er than 40 mg/dL Note: This HDL assay may give artificially low results in patients with liver disease. Blood Venous blood specimen / Unknown 03/06/2025 11:48 AM EDT 03/06/2025 2:45 PM EDT us Julianne Harper MD LAB BLOOD ORDERABLES Final Result Performing Organization Address [facility] Co de Phone Number [facility] [address] [place] [phone] * Albumin, Random Urine W/Creatinine (11/29/2024 4:10 PM EDT) Creatinine, Urine 73.28 mg/dL [facility] Microalbumin Urine 20.0 mg/L [facility] Microalbum Creatinine Ratio Ur 27.2 <30 ug/mg cr [facility] Comment:Albumin/Creatinine R atio Reference Ranges: Normal: < 30 ug/mg creatinine Microalbuminuria: 30 - 300 ug/mg creatinineClinical Albuminuria: > 300 ug/mg creatinine Urine (Urine, Random) 11/29/2024 4:10 PM EDT 11/29/2024 5:55 PM EDT us Julianne Harper MD LAB URINE ORDERABLES Final Result Performing Organization Address [facility] Co de Phone Number [facility] [address] [place] [phone] * Hepatitis C Antibody with Reflex to HCV, RNA, Quantitative, Real-Time PCR (11/29/2024 11:20 AM EDT) Hepatitis C Antibody Nonreactive Nonreactive [facility] Comment:Antibodies to HCV no t detected; does not exclude early acuteHCV infection. 11/29/2024 11:2 0 AM EDT 11/29/2024 1:38 PM EDT us Julianne Harper MD LAB BLOOD ORDERABLES Final Result Performing Organization Address [facility]/State/ZIP Co de Phone Number [facility] [address] [place] [phone] * HIV-1 RNA, Quantitative, Real-Time PCR (11/29/2024 11:20 AM EDT) HIV RNA PCR Qn Copies NOT DETECTED NOT DETECTED copies/mL [facility] HIV RNA PCR Qn Log Copies NOT DETECTED NOT DETECTED [facility] Comment:Result Units: Log co pies/mLThis test was performed using Real-Time Polymerase ChainReaction.Reportable Range: 20 copies/mL to 10,000,000 copies/mL(1.30 log copies/mL to 7.00 log copies/mL).THIS TEST WAS PERFORMED AT:[facility] [place] [phone] HAYWARD MD 11/29/2024 11:2 0 AM EDT 11/29/2024 1:38 PM EDT us Julianne Harper MD LAB BLOOD ORDERABLES Final Result Performing Organization Address [facility]/ZIP Co de Phone Number [facility] [address] [place] [phone] from Last 3 Months or Most Recently Relevant to Health Maintenance Insurance [place] [phone] Care Teams Well Logging Captain Mud Analysis Relationship Specialty Start Date End Date Julianne Harper MD [address] [place] [phone] PCP - General Internal Medicine 12/11/20 Yoko Aly PharmD [address] [place] [phone] Pharmacist Pharmacy 04/11/25
--- OUTSIDE RECORDS SUMMARY | 2025-06-13 11:54 | XMS_ITS | Encounter Summary ---
Author Organization [employer] Address [address] [facility] [address]t [place] [address] Care Team Providers Care Merchandising Execution Manager Name Role Phone Julianne Harper MD Primary Care Provider [phone] Yoko Aly PharmD Unavailable [phone] Reason for Visit * Reason Comments Med Refill Encounter Details Date Type Department Care Team (Late st Contact Info) Description 12/30/2022 Refill [facility] MED[facility] [address] [place], [place] [phone] Julianne Harper MD [address] [place] [address] Social History Tobacco Use Types Packs/Day Years Used Date Smoking Tobacco: Never Assessed Sex and Gender Information Value Date Recorded [...] Description 06/20/2025 10:00 AM EDT Office Visit [facility] MED & PEDS [address] [place] [address] Julianne Harper MD [address] [place] [address] 07/11/2025 9:00 AM EST Medication Management [facility] MED & PEDS [address] [place] [address] Yoko Aly, MichealD [address] [place] [address] documented as of this encounter Visit Diagnoses Not on filedocumented in this encounter Care Teams Merchandising Execution Manager Relationship Specialty Start Date End Date Julianne Harper MD [address] [place] [phone] PCP - General Internal Medicine 12/11/20 Yoko Aly, PharmD [address] [place] [address] Pharmacist Pharmacy 04/11/25 documented as of this encounter
--- OUTSIDE RECORDS SUMMARY | 2025-06-13 11:54 | XMS_ITS | Encounter Summary ---
Author Organization [employer] Address [address] [facility] 7 [place] [address] Care Team Providers Care Rn Emergency Name Role Phone Julianne Harper MD Primary Care Provider [phone] Yoko Aly PharmD Unavailable [phone] Encounter Details Date Type Department Care Team (Late Contact Info) Description 01/14/2023 Orders Only [facility] CHC MED & PEDS [address] [place] [address] Julianne Harper MD [address] [place] [address] Social History Tobacco Use Types Packs/Day Years Used Date Smoking Tobacco: Never Assessed Sex and Gender Information Value Date Recorded Sex Assigned at Male 07/07/2022 10:28 AM EDT Legal Sex Male 10:28 AM EDT Gender Identity Choose not to disclose 10:28 AM EDT Sexual Orientation Choose not to disclose 2021 10:28 AM EDT documented as of this encounter Miscellaneous Notes * Result Encounter Note - Julianne Harper MD - 01/14/2023 1:58 PM EDT Please call. The urine test was reviewed: pt has microalbumunia ( excess of albumin in his urine) which indicates increased risk of Chronic kidney disease. Mr Xiang Florence should start checking his FS regularly with the goal to get his diabetes under control. documented in this encounter Plan of Treatment Upcoming Encounters Date Type Department Care Team (Late st Contact Info) Description 06/20/2025 10:00 AM EDT Office Visit [facility] MED & PEDS [address] [place] [address] Julianne Harper MD [address] [place] [address] 07/11/2025 9:00 AM EST Medication Management [facility] MED & PEDS [address] [place], [place] [phone] Yoko Aly, PharmD [address] [place] [address] documented as of this encounter Procedures Procedure Name Priority Date/Time Associated Diagnosis Comments ALBUMIN, RANDOM URINE W/CREATININE Routine 06/01/2023 10:10 AM EDT BASIC METABOLIC PANEL, FASTING Routine 06/01/2023 10:07 AM EDT HEPATITIS C ANTIBODY REFLEX Routine 04/21/2023 10:05 AM EDT documented in this encounter Results * (ABNORMAL) Albumin, Random Urine W/Creatinine (06/01/2023 10:10 AM EDT) Creatinine, Urine 56.77 mg/dL [facility] Microalbumin Urine 207.0 mg/L [facility] Microalbum Creatinine Ratio Ur 364.6(H) <30 ug/mg cr [facility] Comment:Albumin/Creatinine R atio Reference Ranges: Normal: < 30 ug/mg creatinine Microalbuminuria: 30 - 300 ug/mg creatinineClinical Albuminuria: > 300 ug/mg creatinine 06/01/2023 10:1 0 AM EDT 06/01/2023 2:12 PM EDT us Julianne Harper MD LAB URINE ORDERABLES Final Result [facility] [address] [place] [address] [phone] * (ABNORMAL) Basic Metabolic Panel, Fasting (06/01/2023 10:07 AM EDT) Sodium 135 135 - 145 mmol/L [facility] Potassium 4.6 3.3 - 5.1 mmol/L [facility] Chloride 101 96 - 108 mmol/L [facility] Carbon Dioxide 23 22 - 29 mmol/L [facility] Anion Gap 16 12 - 20 [facility] Urea Nitrogen (BUN) 20(H) 9 - 16 mg/dL [facility] Creatinine, Serum 1.10 0.5 - 1.4 mg/dL [facility] Estimated Glomerular Filt Rate >60 [facility] Comment:NOTE: For -Am erican individuals, multiply the result by 1.210.Chronic Kidney Disease: Estimated GFR < 60 mL/min/1.02y3Oezbhc Kidney Disease: Estimated GFR < 15 mL/min/1.73m2 Glucose Fasting 398(HH) 60 - 99 mg/dL [facility] Comment:Critical value for F BS: Results called to and read back by:Soni Hendricks RN Person calling: DAVEY Date: 06/01/23 Time: 1451A fasting glucose of 126 mg/dl or greater on more than oneoccasion is considered diagnostic of diabetes. Calcium 9.9 8.4 - 10.2 mg/dL [facility] 06/01/2023 10:0 7 AM EDT 06/01/2023 2:06 PM EDT us Julianne Harper MD LAB BLOOD ORDERABLES Final Result [facility] [address] [place] [address] [phone] * Hepatitis C Antibody Reflex (04/21/2023 10:05 AM EDT) Hepatitis C Antibody Nonreactive Nonreactive [facility] Comment:Antibodies to HCV no t detected; does not exclude early acuteHCV infection. 04/21/2023 10:0 5 AM EDT 04/21/2023 11:10 AM EDT Julianne Harper MD LAB BLOOD ORDERABLES Final Result [facility] [address] [place] [address] [phone] documented in this encounter Visit Diagnoses Not on filedocumented in this encounter Care Teams Rn Emergency Relationship Specialty Start Date End Date Julianne Harper MD [address] [place] [address] PCP - General Internal Medicine 12/11/20 Yoko Aly PharmD [address] [place] [address] Pharmacist Pharmacy 04/11/25 documented as of this encounter
--- OUTSIDE RECORDS SUMMARY | 2025-06-13 11:54 | XMS_ITS | Encounter Summary ---
Author Organization [employer] Address 75 [facility] 7t [place] [address] Care Team Providers Care Customer Service Advocate Name Role Phone Julianne Harper MD Primary Care Provider [phone] Yoko Aly PharmD Unavailable [phone] Encounter Details Date Type Department Care Team ([facility] st Contact Info) Description 12/05/2024 Orders Only [facility] CHC MED & PEDS [address] [place], [place] [phone] Julianne Harper MD [address] [place] [address] On pre-exposure prophylaxis for HIV Social History Tobacco Use Types Packs/Day Years Used Date Smoking Tobacco: Never Smokeless Tobacco: Never Housing Stability Answer Date Recorded What is [...] got money to buy more: Never True 11/22/2024 Within the past 12 months,th e food you bought just didn't last and you didn't have enough money to get more: Never True Transportation Answer Date Recorded In the past 12 months, has l ack of transportation kept you from medical appts, meetings, work or from getting things needed for daily living? No 11/22/2024 Utilities Answer Date Recorded In the past 12 months, has t he electric, gas, oil or water company threatened to shut off services in your home? No 11/22/2024 Internet Access Answer Date Recorded Internet Access [...] Description 06/20/2025 10:00 AM EDT Office Visit [facility] MED & PEDS [address] [place] [address] Julianne Harper MD [address] [place] [address] 07/11/2025 9:00 AM EST Medication Management [facility] MED & PEDS [address] [place] [address] Yoko Aly, PharmD [address] [place] [address] documented as of this encounter Visit Diagnoses Diagnosis On pre-exposure prophylaxis for HIV documented in this encounter Care Teams Customer Service Advocate Relationship Specialty Start Date End Date Julianne Harper MD [address] [place] [address] PCP - General Internal Medicine 12/11/20 Yoko Aly, PharmD [address] [place] [address] Pharmacist Pharmacy 04/11/25 documented as of this encounter
--- OUTSIDE RECORDS SUMMARY | 2025-06-13 11:54 | XMS_ITS | Clinical Summary ---
Author Organization [address] [place] [address] Address [address] [place] [address] Phone Care Team Providers Care Wireline Operator Name Role Phone Julianne Harper MD Primary Care Provider [phone] Allergies No known active allergies Medications lisinopriL (PRINIVIL,ZESTR IL) 5 mg tablet Take 1 tablet (5 mg total) by mouth 1 (one) time each day in the morning. 11/04/2024 Active metFORMIN (GLUCOPHAGE) 1,000 mg tablet Take 1 tablet (1,000 mg total) by mouth 1 (one) time each day with breakfast. 05/31/2024 Active simvastatin (ZOCOR) 40 mg tablet Take 1 tablet (40 mg total) by mouth at bedtime. at bedtime 11/02/2024 Active Jardiance 25 mg tablet Take 1 tablet (25 mg total) by mouth 1 (one) time each day in the morning. 11/04/2024 Active Cialis 20 mg tablet Take 1 tablet (20 mg total) by mouth 1 (one) time each day if needed. 07/05/2024 Active Encounters Date Type Department Care Team Description 06/07/2025 10:00 AM EDT Office Visit [facility] [place] [address] [phone] Ant Tucker DPM Poorly controlled type 2 diabetes mellitus with neuropathy (CMS/HCC V24, CMS/HCC V28) (Primary Dx); Pain in toes of both feet; Hammertoes of both feet; Dermatophytosis, nail from Last 3 Months Social History Tobacco Use Types Packs/Day Years Used Date Smoking Tobacco: Never Assessed Sex and Gender Information Value Date Recorded Sex Assigned at Not on file Legal Sex Male 10:39 AM EST Gender Identity Not on file Sexual Orientation Not on file Last Filed Vital Signs Vital Sign Reading Time Taken Comments Blood Pressure - - Pulse - - Temperature - - Respiratory Rate - - Oxygen Saturation - - Inhaled Oxygen Concentration - - Weight 93 kg (205 lb) 11/15/2024 10:27 AM EDT Height 175.3 cm (5' 9 ) 11/15/2024 10:27 AM EDT Body Mass Index 30.27 11/15/2024 10:27 AM EDT Plan of Treatment Upcoming Encounters Date Type Department Care Team (Late st Contact Info) Description 09/11/2025 9:00 AM EST Office Visit [facility] [place] [address] [phone] Ant Tucker DPM [address] [address] Health Maintenance Due Date Last Done Comments Colorectal Cancer Screening: Colonoscopy 1979 Diabetes: Annual GFR (Glomerular Filtration Rate) 1979 Diabetes: Annual Foot Exam 1989 Diabetes: Annual Retina Eye Exam 1989 HPV Vaccines (1 - 3-dose SCDM series) 2006 Social Influencers of Health Screening 08/11/2022 Diabetes: Annual Urine Albumin-Creatinine Ratio (uACR) 08/18/2024 Depression Screening 09/07/2024 Hypertension/CHF/CAD Annual BMP Blood Test 11/15/2024 Hepatitis B Vaccines (2 of 3 - 19+ 3-dose series) 04/03/2025 03/06/2025 Influenza Vaccine (#1) 2025 , 06/01/2023, 06/06/2021, Additional history exists DTaP,Tdap,and Td Vaccines (2 - Td or Tdap) 08/01/2025 08/01/2015 Diabetes: Blood Sugar Control Test (HGBA1C) 09/05/2025 03/06/2025, 07/26/2024, 06/01/2023 Cholesterol Screening (Lipid Panel) 03/06/2030 03/06/2025, 05/10/2024, 06/01/2023 RSV Immunization Adult Patients (1 - 1-dose 75+ series) 2054 MMR Vaccines Aged Out 2018, 03/26/2016 No lo nger eligible based on patient's age to complete this topic Pneumococcal Vaccine: Pediatrics (0 to 5 Years) and At-Risk Patients (6 to 49 Years) Completed 01/21/2024, 08/01/2015 COVID-19 Vaccine Completed 07/27/2024, 06/2021, 03/26/2021 HIV Screening Completed 11/29/2024, 05/10/2024 Hepatitis C Screening Completed 11/29/2024, 024 HIB Vaccines Aged Out No longer eligi ble based on patient's age to complete this topic Hepatitis A Vaccines Aged Out No long er eligible based on patient's age to complete this topic IPV Vaccines Aged Out No longer eligi ble based on patient's age to complete this topic Meningococcal ACWY Vaccine Aged Out N o longer eligible based on patient's age to complete this topic Meningococcal B Vaccine Aged Out No l onger eligible based on patient's age to complete this topic RSV Immunization Patients Under 20 months Aged Out No longer eligible based on patient's age to complete this topic Varicella Vaccines Aged Out No longer eligible based on patient's age to complete this topic Insurance [facility] Care Teams Wireline Operator Relationship Specialty Start Date End Date Julianne Harper MD [address] [place] [address] PCP - General Internal Medicine 08/18/24
--- OUTSIDE RECORDS SUMMARY | 2025-06-13 11:54 | XMS_ITS | Encounter Summary ---
Author Organization [employer] Address [address] [facility] [address] 7t [place] [address] Care Team Providers Care Exchange Specialist Name Role Phone Julianne Harper MD Primary Care Provider [phone] Yoko Aly PharmD Unavailable [phone] Encounter Details Date Type Department Care Team (Latest Contact Info) Description 06/13/2025 Travel Social History Tobacco Use Types Packs/Day Years [...] 10:00 AM EDT Office Visit [facility] MED & PEDS [address] [place] [address] Julianne Harper MD [address] [place] [address] 07/11/2025 9:00 AM EST Medication Management [facility] MED & PEDS [address] [place] [address] Yoko Aly PharmD [address] [place] [address] documented as of this encounter Visit Diagnoses Not on filedocumented in this encounter Additional Health Concerns Assessment Noted Time PHQ-9 Depression Total Score: 6 03/06/20 25 11:26 AM EDT documented as of this encounter Care Teams Exchange Specialist Relationship Specialty Start Date End Date Julianne Harper MD [address] [place] [address] PCP - General Internal Medicine 12/11/20 Yoko Aly, PharmD [address] [place] [address] Pharmacist Pharmacy 04/11/25 documented as of this encounter
--- OUTSIDE RECORDS SUMMARY | 2025-06-13 11:54 | XMS_ITS | Encounter Summary ---
Author Organization [employer] Address 75 [facility] 7t [place] [address] Care Team Providers Care Vault Clerk Name Role Phone Julianne Harper MD Primary Care Provider [phone] Yoko Aly PharmD Unavailable [phone] Reason for Visit * Reason Comments Med Refill Encounter Details Date Type Department Care Team ([facility] st Contact Info) Description 11/29/2024 Refill [facility] CHC MED & PEDS [address] [place], [place] [phone] Julianne Harper MD [address] [place] [address] Social History Tobacco Use Types Packs/Day Years [...] Description 06/20/2025 10:00 AM EDT Office Visit [facility] MED & PEDS [address] [place] [address] Julianne Harper MD [address] [place] [address] 07/11/2025 9:00 AM EST Medication Management [facility] MED & PEDS [address] [place] [address] Yoko Aly, PharmD [address] [place] [address] documented as of this encounter Visit Diagnoses Not on filedocumented in this encounter Care Teams Vault Clerk Relationship Specialty Start Date End Date Julianne Harper MD [address] [place] [address] PCP - General Internal Medicine 12/11/20 Yoko Aly, PharmD [address] [place] [address] Pharmacist Pharmacy 04/11/25 documented as of this encounter
--- OUTSIDE RECORDS SUMMARY | 2025-06-13 11:54 | XMS_ITS | Encounter Summary ---
Author Organization [employer] Address 75 [facility] 7t [place] [address] Care Team Providers Care Driver Operator Name Role Phone Julianne Harper MD Primary Care Provider [phone] Yoko Aly PharmD Unavailable [phone] Reason for Visit * Reason Comments Med Refill Encounter Details Date Type Department Care Team ([facility] st Contact Info) Description 02/17/[address] [facility] CHC MED & PEDS [address] [place], [place] [phone] Julianne Harper MD [address] [place] [address] Social History Tobacco Use Types Packs/Day Years [...] Description 06/20/2025 10:00 AM EDT Office Visit [facility] MED & PEDS [address] [place] [address] Julianne Harper MD [address] [place] [address] 07/11/2025 9:00 AM EST Medication Management [facility] MED & PEDS [address] [place] [address] Yoko Aly, PharmD [address] [place] [address] documented as of this encounter Visit Diagnoses Not on filedocumented in this encounter Care Teams Driver Operator Relationship Specialty Start Date End Date Julianne Harper MD [address] [place] [address] PCP - General Internal Medicine 12/11/20 Yoko Aly, PharmD [address] [place] [address] Pharmacist Pharmacy 04/11/25 documented as of this encounter
--- OUTSIDE RECORDS SUMMARY | 2025-06-13 11:54 | XMS_ITS | Encounter Summary ---
Author Organization [employer] Address 75 [facility] 7t [place] [address] Care Team Providers Care Historical Manuscripts Curator Name Role Phone Julianne Harper MD Primary Care Provider [phone] Yoko Aly PharmD Unavailable [phone] Encounter Details Date Type Department Care Team (Late st Contact Info) Description 01/21/2024 Orders Only [facility] CHC MED & PEDS [address] [place] [address] Julianne Harper MD [address] [place] [address] On pre-exposure prophylaxis for HIV Social History [...] Description 06/20/2025 10:00 AM EDT Office Visit [facility] CHC MED & PEDS [address] [place] [address] Julianne Harper MD [address] [place] [address] 07/11/2025 9:00 AM EST Medication Management [facility] MED & PEDS [address] [place] [address] Yoko Aly, MichealD [address] [place] [address] documented as of this encounter Visit Diagnoses Diagnosis On pre-exposure prophylaxis for HIV documented in this encounter Care Teams Historical Manuscripts Curator Relationship Specialty Start Date End Date Julianne Harper MD [address] [place], [place] [address] [place] [address] PCP - General Internal Medicine 12/11/20 Yoko Aly, PharmD [address] [place] [address] Pharmacist Pharmacy 04/11/25 documented as of this encounter
--- OUTSIDE RECORDS SUMMARY | 2025-06-13 11:54 | XMS_ITS | Encounter Summary ---
Author Organization [employer] Address 75 [facility] 7t [place] [address] Care Team Providers Care Legal Manager Name Role Phone Julianne Harper MD Primary Care Provider [phone] Yoko Aly PharmD Unavailable [phone] Encounter Details Date Type Department Care Team (Late Contact Info) Description 06/05/2023 Orders Only [facility] MED & PEDS [address] [place] [address] Julianne Harper MD [address] [place] [address] Type 2 diabetes mellitus with hyperglycemia, with long-term current use of insulin ([facility]) (Primary Dx); Hypertriglyceridemia Social History Tobacco Use Types Packs/Day Years Used Date Smoking Tobacco: Never Smokeless Tobacco: Never Sex and Gender Information Value Date Recorded Sex Assigned at Male 07/07/2022 10:28 AM EDT Legal Sex Male 10:28 AM EDT Gender Identity Choose not to disclose 2 10:28 AM EDT Sexual Orientation Choose not to disclose 2021 10:28 AM EDT documented as of this encounter Plan of Treatment Upcoming Encounters Date Type Department Care Team (Late st Contact Info) Description 06/20/2025 10:00 AM EDT Office Visit [facility] MED & PEDS [address] [place] [address] Julianne Harper MD [address] [place] [address] 07/11/2025 9:00 AM EST Medication Management [facility] CHC MED & PEDS [address] [place] [address] Yoko Aly PharmD [address] [place] [address] documented as of this encounter Visit Diagnoses Diagnosis Type 2 diabetes mellitus with hyperglycemia, with long-term current use of insulin (HCC)- Primary Hypertriglyceridemia Pure hyperglyceridemia documented in this encounter Care Teams Legal Manager Relationship Specialty Start Date End Date Julianne Harper MD [address] [place] [address] PCP - General Internal Medicine 12/11/20 Yoko Aly, Ulises [address] [place] [address] Pharmacist Pharmacy 04/11/25 documented as of this encounter
--- OUTSIDE RECORDS SUMMARY | 2025-06-13 11:54 | XMS_ITS | Encounter Summary ---
Author Organization [employer] Address 75 [facility] 7t [place] [address] Care Team Providers Care Hole Digger Truck Driver Name Role Phone Julianne Harper MD Primary Care Provider [phone] Yoko Aly PharmD Unavailable [phone] Reason for Visit * Reason Comments Pre-visit Planning SDOH screening compl eted on 11/22/24 Encounter Details Date Type Department Care Team ([facility] st Contact Info) Description 06/12/2025 Patient Outreach [facility] MEDICINE [address] [place] [address] Julianne Harper MD [address] [place] [address] Pre-visit Planning (SDOH screening completed on 11/22/24) Social History Tobacco Use Types Packs/Day Years [...] AM EDT documented as of this encounter Progress Notes * Larry Robbins - 06/12/2025 10:49 AM EDT [facility] placed successful outbound call to patient for pre-visit planning. Patient name and confirmed. Patient confirms appt date and time, and has transportation arrangements. Biggest concern for appointment at this time is no concerns. Patient advised to bring to appointment a photo id and insurance card. Appropriate screenings completed in anticipation of appointment. documented in this encounter Plan of Treatment Upcoming Encounters Date Type Department Care Team ([facility] st Contact Info) Description 06/20/2025 10:00 AM EDT Office Visit [facility] MED & PEDS [address] [place] [address] Julianne Harper MD [address] [place] [address] 07/11/2025 9:00 AM EST Medication Management [facility] MED & PEDS [address] [place] [address] Yoko Aly PharmD [address] [place] [address] documented as of this encounter Visit Diagnoses Not on filedocumented in this encounter Additional Health Concerns Assessment Noted Time PHQ-9 Depression Total Score: 6 03/06/20 11:26 AM EDT documented as of this encounter Care Teams Hole Digger Truck Driver Relationship Specialty Start Date End Date Julianne Harper MD [address] [place] [address] PCP - General Internal Medicine 12/11/20 Yoko Aly, Ulises [address] [place] [address] Pharmacist Pharmacy 04/11/25 documented as of this encounter
[2025-06-13 16:12] LABS: CT PCR Urine NOT DETECTED (Not Detect.); NG PCR Urine NOT DETECTED (Not Detect.)
[2025-06-14 07:59] LABS: Syphilis Screen Nonreactive (Nonreactive)
[2025-06-14 08:16] LABS: HIV Num 1 0.05 S/CO (0.00-0.99); ~HepC Num1 0.05 S/CO (0.00-0.79); ~Hepatitis C Antibody Nonreactive (Nonreactive)
[2025-06-14 20:08] LABS: HCV Log PCR <1.18 NOT DETECTED Log IU/mL (NOT DETECTED); HepC Viral Load <15 NOT DETECTED IU/mL (NOT DETECTED)
[2025-06-14 21:08] LABS: HIV RNA PCR Qn Copies NOT DETECTED copies/mL (NOT DETECTED); HIV RNA PCR Qn Log Copies NOT DETECTED (NOT DETECTED)
== END 2025-06-13 10:06 | disposition home or self-care (01) ==
LOC: HO.CHCLDS 10:05
PROVIDERS: Visit Provider Internal Medicine
DX: Z01.84 Encounter for antibody response examination (principal); Z11.59 Encounter for screening for other viral diseases; Z11.4 Encounter for screening for human immunodeficiency virus [HIV]; Z91.89 Other specified personal risk factors, not elsewhere classified; Z20.2 Contact with and (suspected) exposure to infections with a predominantly sexual mode of transmission
CPT/HCPCS: 86592; 86780; 86803; 87389; 87491; 87522; 87536; 87591